=== PATIENT | male | born 1930 | race Caucasian/White ===

== ENCOUNTER 2019-02-22 14:58 | Emergency (ER) | payer MEDICARE ==
[2019-02-22 15:51] VITALS: BP 123/57
--- NOTE | 2019-02-22 16:17 | UC ---
Skin Complaint HPI - HPI Summary HPI Summary: 88-year-old male 88-year-old male comes in with a chief complaint of a skin infection on his thoracic back. He's had a cyst on his back for a long time. It's been getting worse over the last week or so and then 2 days ago it ruptured and started to drain. A visiting nurse came to his house today and recommended further evaluation. No fevers or chills feels well otherwise. No history of MRSA. Now that is straining the pain is less. If the patient puts weight on it the pain is more. - History of Current Complaint Chief Complaint: UCSkin Time Seen by Provider: 02/22/19 15:59 Stated Complaint: SKIN CONCERN - BACK (POSS. CYST) Pain Intensity: 3 - Allergy/Home Medications Allergies/Adverse Reactions: Allergies Allergy/AdvReac Type Severity Reaction Status Date / Time ciprofloxacin [From Cipro] Allergy burning Verified 02/22/19 15:52 skin, skin damage Home Medications: Home Medications Antidepressant 1 tab PO QPM 02/22/19 [History Confirmed 02/22/19] Atorvastatin* [Lipitor*] 20 mg PO DAILY 02/22/19 [History Confirmed 02/22/19] Indigestion Pill 1 tab PO QAM 02/22/19 [History Confirmed 02/22/19] Metoprolol Succinate [Metoprolol Succinate ER] 25 mg PO QAM 02/22/19 [History Confirmed 02/22/19] Oxygen 2 units INH DAILY 02/22/19 [History Confirmed 02/22/19] Sertraline* [Zoloft*] 1 tab PO QPM 02/22/19 [History Confirmed 02/22/19] Warfarin TAB(*) [Coumadin TAB(*)] 5 mg PO QPM 02/22/19 [History Confirmed ] PMH/Surg Hx/FS Hx/Imm Hx Previously Healthy: Yes Endocrine History: Dyslipidemia Cardiovascular History: Hypertension - Surgical History Surgical History: Yes Surgery Procedure, Year, and Place: 1998 open heart for aortic, pubic catheter - Family History Known Family History: Positive: Non-Contributory - Social History Alcohol Use: Rare Substance Use Type: None Smoking Status (MU): Former Smoker Review of Systems All Other Systems Reviewed And Are Negative: Yes Constitutional: Positive: Negative Skin: Positive: Other - SEE HPI Eyes: Positive: Negative ENT: Positive: Negative Respiratory: Positive: Negative Cardiovascular: Positive: Negative Gastrointestinal: Positive: Negative Motor: Positive: Negative Neurovascular: Positive: Negative Musculoskeletal: Positive: Negative Neurological: Positive: Negative Psychological: Positive: Negative Is Patient Immunocompromised?: No Physical Exam Triage Information Reviewed: Yes Appearance: Well-Appearing, No Pain Distress, Well-Nourished Vital Signs: Initial Vital Signs Temp 98.3 F 02/22/19 15:36 Pulse 76 02/22/19 15:36 Resp 24 02/22/19 15:36 BP 123/57 02/22/19 15:36 Pulse Ox 99 02/22/19 15:36 Vital Signs Reviewed: Yes Eye Exam: Normal Eyes: Positive: Conjunctiva Clear Neck: Positive: Supple Respiratory: Positive: No respiratory distress Musculoskeletal: Positive: ROM Intact Neurological: Positive: Alert, Muscle Tone Normal Psychological Exam: Normal Psychological: Positive: Age Appropriate Behavior Skin: Positive: Other - RT POSTERIOR THORACIC BACK SKIN ABSCESS 2CM RAISED, TENDER TO PALPATION, MILD ERYTHEMA, NO STREAKING, IS ACTIVLY DRAINING PUS. Course/Dx - Course Course Of Treatment: BECAUSE THE ABSCESS IS ACTIVELY DRAINING, NO I&D - Diagnoses Provider Diagnosis: Abscess of skin Discharge - Sign-Out/Discharge Documenting (check all that apply): Patient Departure All imaging exams completed and their final reports reviewed: No Studies - Discharge Plan Condition: Stable Disposition: HOME Prescriptions: Cephalexin CAP* [Keflex CAP*] 500 mg PO TID #30 cap Patient Education Materials: Abscess (ED) Referrals: Joshua Delgado MD [Primary Care Provider] - Additional Instructions: FOLLOW UP WITH YOUR DOCTOR IF NOT COMPLETELY IMPROVED. GET RECHECKED SOONER IF YOUR CONDITION WORSENS; FEVER, YOU FEEL ILL OR ANY QUESTIONS OR CONCERNS. - Billing Disposition and Condition Condition: STABLE Disposition: Home
== END 2019-02-22 16:35 | disposition home or self-care (01) ==
LOC: UCCORT 14:58
DX: L02.212 Cutaneous abscess of back [any part, except buttock and flank] (principal); E78.5 Hyperlipidemia, unspecified; I10 Essential (primary) hypertension; Z88.8 Allergy status to other drugs, medicaments and biological substances; Z79.01 Long term (current) use of anticoagulants; Z87.891 Personal history of nicotine dependence
CPT/HCPCS: 87070; 87205; 87640; 87641; 99202; G0463